=== PATIENT | male | born 1945 | race Two or more races ===

== ENCOUNTER 2019-03-24 11:58 | Emergency (ER) | payer OTHER ==
[~2019-03-24] VITALS: Ht 162.6 cm; Wt 77.1 kg
[2019-03-24 12:07] VITALS: BP 142/79
== END 2019-03-24 13:23 | disposition home or self-care (01) ==
LOC: ER 12:05
DX: S39.012A Strain of muscle, fascia and tendon of lower back, initial encounter (principal); W22.8XXA Striking against or struck by other objects, initial encounter; Y93.89 Activity, other specified; Y92.69 Other specified industrial and construction area as the place of occurrence of the external cause; Y99.8 Other external cause status
CPT/HCPCS: 72100